=== PATIENT | female | born 1945 | race Caucasian/White ===

== ENCOUNTER 2019-06-19 13:47 | Inpatient (IN) ==
[2019-06-19] MEDS ORDERED: Naloxone 0.4 MG/ML INJ IVP PRN (21:35)
[2019-06-19] MEDS ORDERED: Albuterol 2.5 MG/3 ML NEBULIZER IH PRN (21:39)
[2019-06-19] MEDS ORDERED: Nicotine 21 MG PATCH.TD24 TD PRN (21:39)
[2019-06-19] MEDS ORDERED: Azithromycin 500 MG in 0.9 % Sodium Chloride 250 ML IVPB SCH (22:00)
[2019-06-19] MEDS: Ipratropium/Albuterol Neb 3 ML IH SCH (22:57)
[2019-06-19] MEDS: MethylPREDNISolone 40 MG/ML VIAL IVP SCH (23:34)
[2019-06-20] MEDS: Ipratropium/Albuterol Neb 3 ML IH SCH ×2 (04:38→11:17)
[2019-06-20 04:44] LABS: Basophils % 0.1 %; Hematocrit 36.6 % (35.3-44.9); Hemoglobin 12.1 g/dL (11.5-15.4); Immature Granulocytes % 0.6 % (0-4); Lymphocytes # 0.7 K/mcL (0.6-4.6); Lymphocytes % 5.8 %; Mean Corpuscular HGB Conc 33.1 g/dL (31.6-35.5); Mean Corpuscular Volume 87.8 fL (83.0-100.0); Monocytes # 0.4 K/mcL (0.0-1.3); Monocytes % 3.3 %; Neutrophils # 11.4 K/mcL (1.6-8.9); Platelet Count 461 K/mcL (140-400); Red Blood Count 4.17 M/mcL (3.82-4.97); Segmented Neutrophils % 90.2 %; White Blood Count 12.6 K/mcL (4.3-11.1)
[2019-06-20 04:54] LABS: Activated Partial Thrombo Time 43.8 Seconds (26.0-36.0)
[2019-06-20 05:01] LABS: INR 5.1; Prothrombin Time 57.9 Seconds (9.4-12.1)
[2019-06-20 05:04] LABS: Alanine Aminotransferase 33 Units/L (7-52); Albumin/Globulin Ratio 0.8 (1.1-2.2); Alkaline Phosphatase 240 Units/L (34-104); Aspartate Amino Transferase 35 Units/L (13-39); BUN/Creatinine Ratio 22 (6-26); Bilirubin,Total 0.5 mg/dL (0.3-1.0); Blood Urea Nitrogen 11 mg/dL (8-23); Calcium 8.3 mg/dL (8.6-10.3); Carbon Dioxide 26 mEq/L (23-29); Chloride 106 mEq/L (98-107); Globulin 3.8 g/dL (2.4-3.5); Glucose 172 mg/dL (70-105); Magnesium 1.6 mg/dL (1.6-2.6); Osmolality,Calculated 293 (280-300); Phosphorous 2.3 mg/dL (2.7-4.5); Potassium 3.3 mEq/L (3.5-5.1); Sodium 140 mEq/L (136-145); Total Protein 6.8 g/dL (6.4-8.9); eGFR For African Americans > 60 (> 60); eGFR For Non-African Americans > 60 (> 60)
[2019-06-20] MEDS ORDERED: *HR* Heparin 5,000 UNIT/ML VIAL SQ SCH (06:00)
[2019-06-20] MEDS: MethylPREDNISolone 40 MG/ML VIAL IVP SCH ×3 (06:23→20:14)
[2019-06-20] MEDS ORDERED: *HR* Metoprolol 5 MG/5 ML VIAL IVP ONE ×2 (07:05→07:12)
[2019-06-20] MEDS ORDERED: cefTRIAXone 1,000 MG in Water for inj. (sterile) 10 ML IVP SCH (09:00)
[2019-06-20] MEDS ORDERED: Vancomycin 1,000 MG VIAL IVPB SCH (09:00)
[2019-06-20 11:29] LABS: Hematocrit 40.2 % (35.3-44.9); Hemoglobin 13.4 g/dL (11.5-15.4); Mean Corpuscular HGB Conc 33.3 g/dL (31.6-35.5); Platelet Count 572 K/mcL (140-400); Red Blood Count 4.62 M/mcL (3.82-4.97); Red Cell Distribution Width 13.1 % (11.5-14.5)
[2019-06-20 11:40] LABS: Activated Partial Thrombo Time 44.7 Seconds (26.0-36.0)
[2019-06-20 11:48] LABS: INR 5.5; Prothrombin Time 62.8 Seconds (9.4-12.1)
[2019-06-20] MEDS: 0.9 % Sodium Chloride 1,000 ML IVC SCH ×2 (12:41→22:59)
[2019-06-20] MEDS ORDERED: 0.9 % Sodium Chloride 500 ML IVC ONE (13:37)
[2019-06-20] MEDS: Levalbuterol Neb 1.25 MG/3 ML IH SCH ×2 (16:11→23:16)
[2019-06-20] MEDS ORDERED: Perflutren Lipid Microsphere 1.3 ML in 0.9 % Sodium Chloride 8.7 ML IVP ONE (16:17)
[2019-06-20] MEDS: Cholestyramine 4 GM POWD.PACK PO SCH (20:14)
[2019-06-20] MEDS: DilTIAZem 50 MG in 0.9 % Sodium Chloride 40 ML IVC SCH (20:14)
[2019-06-21] MEDS: DilTIAZem 50 MG in 0.9 % Sodium Chloride 40 ML IVC SCH (02:05)
[2019-06-21] MEDS: Levalbuterol Neb 1.25 MG/3 ML IH SCH ×4 (03:55→23:43)
[2019-06-21 07:16] LABS: Hematocrit 37.7 % (35.3-44.9); Hemoglobin 12.1 g/dL (11.5-15.4); Mean Corpuscular HGB Conc 32.1 g/dL (31.6-35.5); Mean Corpuscular Hemoglobin 28.4 pg (28.0-33.3); Mean Corpuscular Volume 88.5 fL (83.0-100.0); Mean Platelet Volume 9.1 fL (9.4-12.4); Platelet Count 579 K/mcL (140-400); Red Blood Count 4.26 M/mcL (3.82-4.97); Red Cell Distribution Width 13.2 % (11.5-14.5); White Blood Count 20.9 K/mcL (4.3-11.1)
[2019-06-21 07:35] LABS: Activated Partial Thrombo Time 29.2 Seconds (26.0-36.0)
[2019-06-21 07:36] LABS: BUN/Creatinine Ratio 28 (6-26); Blood Urea Nitrogen 15 mg/dL (8-23); Carbon Dioxide 29 mEq/L (23-29); Chloride 107 mEq/L (98-107); Glucose 169 mg/dL (70-105); Potassium 3.3 mEq/L (3.5-5.1); Sodium 144 mEq/L (136-145); eGFR For African Americans > 60 (> 60); eGFR For Non-African Americans > 60 (> 60)
[2019-06-21 07:37] LABS: Calcium 8.1 mg/dL (8.6-10.3); Magnesium 1.5 mg/dL (1.6-2.6); Osmolality,Calculated 303 (280-300); Phosphorous 2.4 mg/dL (2.7-4.5)
[2019-06-21 07:42] LABS: D-Dimer 949 ng/mLFEU (0-500); INR 1.2; Prothrombin Time 14.1 Seconds (9.4-12.1)
[2019-06-21] MEDS ORDERED: D5% in Lactated Ringers 1,000 ML IVC SCH (07:45)
[2019-06-21] MEDS ORDERED: 0.9 % Sodium Chloride 1,000 ML IVC SCH (07:45)
[2019-06-21 07:59] LABS: Fibrinogen 394 mg/dL (169-393)
[2019-06-21] MEDS: Aspirin 81 MG TAB.CHEW PO SCH (08:23)
[2019-06-21] MEDS: MethylPREDNISolone 40 MG/ML VIAL IVP SCH ×2 (08:23→15:47)
[2019-06-21] MEDS: Cholestyramine 4 GM POWD.PACK PO SCH ×2 (08:23→22:07)
[2019-06-21] MEDS ORDERED: Doxycycline 100 MG CAPSULE PO SCH (09:00)
[2019-06-21] MEDS: Ringers Solution, Lactated 1,000 ML IVC SCH (10:24)
[2019-06-21] MEDS: Azithromycin 500 MG in 0.9 % Sodium Chloride 250 ML IVPB SCH (14:36)
[2019-06-21] MEDS: Piperacillin/Tazobactam 3.375 GM in 0.9 % Sodium Chloride Mini Bag 100 ML IVPB SCH (15:47)
[2019-06-21] MEDS: Benzonatate 100 MG CAPSULE PO PRN (17:51)
[2019-06-21] MEDS: traZODone 50 MG TABLET PO PRN (22:07)
[2019-06-22] MEDS: Piperacillin/Tazobactam 3.375 GM in 0.9 % Sodium Chloride Mini Bag 100 ML IVPB SCH ×3 (01:13→17:14)
[2019-06-22] MEDS ORDERED: 0.9 % Sodium Chloride 1,000 ML IVC SCH (01:15)
[2019-06-22] MEDS: MethylPREDNISolone 40 MG/ML VIAL IVP SCH ×3 (01:17→17:15)
[2019-06-22] MEDS: Levalbuterol Neb 1.25 MG/3 ML IH SCH ×4 (03:55→21:03)
[2019-06-22 05:03] LABS: Hematocrit 37.2 % (35.3-44.9); Hemoglobin 11.8 g/dL (11.5-15.4); Mean Corpuscular HGB Conc 31.7 g/dL (31.6-35.5); Mean Corpuscular Hemoglobin 28.5 pg (28.0-33.3); Mean Corpuscular Volume 89.9 fL (83.0-100.0); Mean Platelet Volume 9.2 fL (9.4-12.4); Platelet Count 558 K/mcL (140-400); Red Blood Count 4.14 M/mcL (3.82-4.97); Red Cell Distribution Width 13.3 % (11.5-14.5); White Blood Count 15.7 K/mcL (4.3-11.1)
[2019-06-22 05:23] LABS: Magnesium 2.5 mg/dL (1.6-2.6); Phosphorous 2.3 mg/dL (2.7-4.5)
[2019-06-22 05:24] LABS: BUN/Creatinine Ratio 32 (6-26); Blood Urea Nitrogen 19 mg/dL (8-23); Calcium 8.3 mg/dL (8.6-10.3); Carbon Dioxide 29 mEq/L (23-29); Chloride 105 mEq/L (98-107); Glucose 185 mg/dL (70-105); Osmolality,Calculated 303 (280-300); Potassium 3.5 mEq/L (3.5-5.1); Sodium 143 mEq/L (136-145); eGFR For African Americans > 60 (> 60); eGFR For Non-African Americans > 60 (> 60)
[2019-06-22] MEDS: Aspirin 81 MG TAB.CHEW PO SCH (08:58)
[2019-06-22] MEDS: Cholestyramine 4 GM POWD.PACK PO SCH ×2 (10:54→20:19)
[2019-06-22] MEDS: Ringers Solution, Lactated 1,000 ML IVC SCH (11:08)
[2019-06-22] MEDS ORDERED: *HR* Digoxin 0.5 MG/2 ML AMPUL IVP ONE (12:09)
[2019-06-22] MEDS: Azithromycin 500 MG in 0.9 % Sodium Chloride 250 ML IVPB SCH (14:51)
[2019-06-22] MEDS ORDERED: Furosemide 20 MG/2 ML VIAL IVP ONE (17:19)
[2019-06-22] MEDS: *HR* Digoxin 0.5 MG/2 ML AMPUL IVP SCH (20:19)
[2019-06-22] MEDS: traZODone 50 MG TABLET PO PRN (21:57)
[2019-06-23] MEDS: Piperacillin/Tazobactam 3.375 GM in 0.9 % Sodium Chloride Mini Bag 100 ML IVPB SCH ×3 (01:00→17:24)
[2019-06-23] MEDS: MethylPREDNISolone 40 MG/ML VIAL IVP SCH ×3 (01:00→17:24)
[2019-06-23] MEDS ORDERED: Diphenoxylate/Atropine 1 TAB TABLET PO PRN (02:06)
[2019-06-23] MEDS: *HR* Digoxin 0.5 MG/2 ML AMPUL IVP SCH (03:17)
[2019-06-23] MEDS: Levalbuterol Neb 1.25 MG/3 ML IH SCH ×4 (03:19→22:01)
[2019-06-23 05:28] LABS: Hemoglobin 11.5 g/dL (11.5-15.4); Mean Corpuscular HGB Conc 31.9 g/dL (31.6-35.5); Mean Corpuscular Volume 90.9 fL (83.0-100.0); Mean Platelet Volume 8.9 fL (9.4-12.4); Platelet Count 480 K/mcL (140-400); Red Blood Count 3.96 M/mcL (3.82-4.97); Red Cell Distribution Width 13.2 % (11.5-14.5); White Blood Count 11.6 K/mcL (4.3-11.1)
[2019-06-23 05:43] LABS: BUN/Creatinine Ratio 22 (6-26); Blood Urea Nitrogen 13 mg/dL (8-23); Carbon Dioxide 32 mEq/L (23-29); Chloride 104 mEq/L (98-107); Glucose 173 mg/dL (70-105); Osmolality,Calculated 300 (280-300); Potassium 3.5 mEq/L (3.5-5.1); Sodium 143 mEq/L (136-145); eGFR For African Americans > 60 (> 60); eGFR For Non-African Americans > 60 (> 60)
[2019-06-23] MEDS: Aspirin 81 MG TAB.CHEW PO SCH (09:58)
[2019-06-23] MEDS: hydrOXYzine pamoate 25 MG CAPSULE PO PRN (09:58)
[2019-06-23] MEDS ORDERED: *HR* Digoxin 0.125 MG TABLET PO ONE (12:16)
[2019-06-23] MEDS: Cholestyramine 4 GM POWD.PACK PO SCH (12:26)
[2019-06-23] MEDS: Azithromycin 500 MG in 0.9 % Sodium Chloride 250 ML IVPB SCH (13:43)
[2019-06-23] MEDS ORDERED: Aminoglycoside Consult 1 EACH MC ONE (14:46)
[2019-06-23] MEDS ORDERED: Morphine Sulfate Oral CONC 10 MG/0.5 ML ORAL.SYG SL PRN (16:13)
[2019-06-23] MEDS ORDERED: Furosemide 20 MG/2 ML VIAL IVP ONE (17:12)
[2019-06-23 18:09] LABS: INR 1.1; Prothrombin Time 12.5 Seconds (9.4-12.1)
[2019-06-23 19:08] LABS: QuantiFERON Mitogen minus NIL 0.84 IU/mL
[2019-06-24] MEDS: Cholestyramine 4 GM POWD.PACK PO SCH ×2 (00:14→10:28)
[2019-06-24] MEDS: MethylPREDNISolone 40 MG/ML VIAL IVP SCH ×2 (00:14→08:24)
[2019-06-24] MEDS: Piperacillin/Tazobactam 3.375 GM in 0.9 % Sodium Chloride Mini Bag 100 ML IVPB SCH ×2 (00:14→10:34)
[2019-06-24 01:18] LABS: A.galactomannan Ag Index 0.06
[2019-06-24] MEDS: Levalbuterol Neb 1.25 MG/3 ML IH SCH ×2 (04:08→10:17)
[2019-06-24] MEDS: hydrOXYzine pamoate 25 MG CAPSULE PO PRN (05:02)
[2019-06-24] MEDS: Benzonatate 100 MG CAPSULE PO PRN (05:05)
[2019-06-24 06:36] LABS: Hematocrit 40.9 % (35.3-44.9); Mean Corpuscular Hemoglobin 28.7 pg (28.0-33.3); Mean Corpuscular Volume 89.7 fL (83.0-100.0); Mean Platelet Volume 9.1 fL (9.4-12.4); Platelet Count 543 K/mcL (140-400); Red Blood Count 4.56 M/mcL (3.82-4.97); Red Cell Distribution Width 13.2 % (11.5-14.5); White Blood Count 14.1 K/mcL (4.3-11.1)
[2019-06-24 06:37] LABS: Hemoglobin 13.1 g/dL (11.5-15.4)
[2019-06-24 07:02] LABS: BUN/Creatinine Ratio 21 (6-26); Blood Urea Nitrogen 14 mg/dL (8-23); Calcium 8.6 mg/dL (8.6-10.3); Carbon Dioxide 29 mEq/L (23-29); Chloride 102 mEq/L (98-107); Glucose 175 mg/dL (70-105); Magnesium 2.1 mg/dL (1.6-2.6); Osmolality,Calculated 303 (280-300); Phosphorous 2.4 mg/dL (2.7-4.5); Potassium 3.2 mEq/L (3.5-5.1); Sodium 144 mEq/L (136-145); eGFR For African Americans > 60 (> 60); eGFR For Non-African Americans > 60 (> 60)
[2019-06-24] MEDS ORDERED: Potassium Chloride Elixir 20 MEQ/15 ML UDC PO ONE (07:39)
[2019-06-24] MEDS: Aspirin 81 MG TAB.CHEW PO SCH (08:23)
[2019-06-24] MEDS ORDERED: *HR* Metoprolol 5 MG/5 ML VIAL IVP PRN (08:53)
[2019-06-24] MEDS ORDERED: *HR* Digoxin 0.125 MG TABLET PO SCH (09:00)
[2019-06-24 10:42] VITALS: BP 135/104
[2019-06-24] MEDS ORDERED: *HR* Metoprolol 5 MG/5 ML VIAL IVP SCH (12:00)
[2019-06-24 12:41] LABS: QuantiFERON NIL 0.01 IU/mL; QuantiFERON-TB Gold In-Tube NEGATIVE
== END 2019-06-24 14:47 | disposition hospice, home (50) | DRG 871 ==
LOC: 2NENU → SUATTDRO 19:44
PROVIDERS: ADMIT Internal Medicine Nephrology; ATTEND Internal Medicine